=== PATIENT | male | born 1995 | race African-American/Black ===

== ENCOUNTER 2022-12-16 11:39 | Inpatient (IN) | payer OTHER ==
[2022-12-16 13:57] VITALS: BMI 24.7
[2022-12-16] MEDS ORDERED: BENZOCAINE/MENTHOL (CHLORASEPTIC ) LOZENGE MM PRN (14:52)
[2022-12-16] MEDS ORDERED: IBUPROFEN 600 MG TABLET (FP) PO PRN (14:52)
[2022-12-16] MEDS ORDERED: NALOXONE HCL 0.4 MG/ML VIAL IM PRN (14:52)
[2022-12-16] MEDS ORDERED: MAGNESIUM HYDROX 2400MG/30ML ORAL SUSPENSION 30 ML CUP PO PRN (14:52)
[2022-12-16] MEDS ORDERED: NICOTINE POLACRILEX 2 MG GUM BUC PRN (14:52)
[2022-12-16] MEDS ORDERED: ACETAMINOPHEN 325 MG TABLET (FP) PO PRN (14:52)
[2022-12-16] MEDS ORDERED: METHOCARBAMOL 500 MG TABLET PO PRN (14:52)
[2022-12-16] MEDS ORDERED: P-EPHED 60MG/TRIPROLIDI 2.5MG TABLET PO PRN (14:52)
[2022-12-16] MEDS ORDERED: BISMUTH SUBSALICYLATE 262 MG/15 ML BTL PO PRN (14:52)
[2022-12-16] MEDS ORDERED: BENZONATATE 200 MG CAPSULE PO PRN (14:52)
[2022-12-16] MEDS ORDERED: IBUPROFEN 400 MG TABLET (FP) PO PRN (14:52)
[2022-12-16] MEDS ORDERED: guaiFENesin 600 MG TABLET.ER (FP) PO PRN (14:52)
[2022-12-16] MEDS ORDERED: NALOXONE HCL (KLOXXADO) 8 MG SPRAY NS PRN (14:52)
[2022-12-16] MEDS ORDERED: LOPERAMIDE HCL 2 MG CAPSULE PO PRN (14:52)
[2022-12-16] MEDS ORDERED: MAG HYDROX/AL HYDROX/SIMETH 30 ML UNIT-DOSE CUP PO PRN (14:52)
[2022-12-16] MEDS ORDERED: ONDANSETRON *ODT* 4 MG TABLET SL PRN (14:52)
[2022-12-16] MEDS ORDERED: DICYCLOMINE HCL 10 MG CAPSULE PO PRN (14:52)
[2022-12-16] MEDS ORDERED: hydrOXYzine PAMOATE 25 MG CAPSULE (FP) PO PRN (14:52)
[2022-12-16] MEDS ORDERED: POLYETHYLENE GLYCOL (HEALTHYLAX) 3350 17 GM PACKET PO PRN (14:52)
[2022-12-16] MEDS ORDERED: ALBUTEROL SO4 HFA INHALER IH ONE (17:27)
[2022-12-16] MEDS ORDERED: ALBUTEROL SO4 HFA INHALER IH PRN (17:39)
[2022-12-16] MEDS ORDERED: THIAMINE HCL 100 MG TABLET (FP) PO SCH (22:00)
[2022-12-16] MEDS ORDERED: MELATONIN 5 MG TABLETS PO SCH (22:00)
[2022-12-17 08:52] VITALS: BP 137/71; PULSE 78; RESP 17; TEMP 97.7
[2022-12-17] MEDS: PRENATAL VITAMINS W/ FOLIC ACID TABLET (FP) PO SCH ×2 (10:30→10:38)
[2022-12-17] MEDS: NICOTINE 7 MG/24 HOURS TOPICAL PATCH TD SCH ×2 (10:30→10:38)
[2022-12-17 14:06] LABS: HEMATOCRIT 47.8 % (35.4-49); HEMOGLOBIN 15.6 GM/dL (11.7-16.9); MCH 28.1 pg (25.7-33.7); MCHC 32.6 g/dl (32.0-35.9); MEAN CELL VOLUME 86.3 fl (80-96); MEAN PLT VOLUME 8.7 fl (7.5-11.1); PLATELET COUNT 310 10^3/uL (134-434); RBC 5.54 M/mm3 (4.00-5.60); RDW 13.5 % (11.9-15.9); WHITE BLOOD COUNT 7.3 K/mm3 (4.0-10.0)
[2022-12-17 14:22] LABS: ALBUMIN 4.3 g/dl (3.4-5.0); BLOOD UREA NITROGEN 13.3 mg/dL (7-18); CALCIUM 9.7 mg/dL (8.5-10.1)
[2022-12-17 14:24] LABS: CREATININE 1.2 mg/dL (0.55-1.3)
[2022-12-17 14:26] LABS: BILIRUBIN,TOTAL 0.5 mg/dL (0.2-1); TOT PROT 8.2 g/dl (6.4-8.2)
== END 2022-12-17 11:57 | disposition home or self-care (01) | DRG 773 ==
LOC: YASAS 11:39 → Y3N 15:53
PROVIDERS: ADMIT Allergy & Immunology; ATTEND Surgery
PROC: HZ2ZZZZ Detoxification Services for Substance Abuse Treatment (ICD-10-PCS; principal; 2022-12-16)
DX: F11.23 Opioid dependence with withdrawal (principal); F17.210 Nicotine dependence, cigarettes, uncomplicated; U07.0 Vaping-related disorder; R00.0 Tachycardia, unspecified; Z28.310 Unvaccinated for COVID-19; Z91.013 Allergy to seafood
CPT/HCPCS: 36415; 80053; 85027; 86780; 87635